=== PATIENT | female | born 1975 | race Caucasian/White ===

== ENCOUNTER → 2017-05-17 | Outpatient (CLI) | payer OTHER ==
[~2017-05-17] VITALS: Ht 156.2 cm; Wt 63.5 kg
[~2017-05-17] MED LIST: ERRIN0.35 MG PO; LEVOXYL112 MCG PO; PROBIOTIC1 EAC1 PO; ZYRTEC10 M3 PO
== END | disposition home or self-care (01) ==
LOC: AMB 07:30
PROC: 0TF3XZZ Fragmentation in Right Kidney Pelvis, External Approach (ICD-10-PCS; principal; 2017-05-17)
DX: N20.2 Calculus of kidney with calculus of ureter (principal); E03.9 Hypothyroidism, unspecified; F17.210 Nicotine dependence, cigarettes, uncomplicated
CPT/HCPCS: 74010; J1100; J1885; J2250; J2405